=== PATIENT | female | born 2000 | race Caucasian/White ===

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

== ENCOUNTER 2021-10-20 23:27 | Emergency (ER) | payer BC, OTHER ==
[2021-10-20] MEDS ORDERED: IBUPROFEN 600 MG TAB PO STA (23:55)
[2021-10-20] MEDS ORDERED: ACETAMINOPHEN TAB 500 MG TAB PO STA (23:55)
[2021-10-20] MEDS ORDERED: ONDANSETRON ODT 4 MG TAB PO STA (23:59)
--- NOTE | 2021-10-21 | ED ---
General Adult HPI - General Chief complaint: Upper Respiratory Infection Stated complaint: Fever Time Seen by Provider: 10/20/21 23:48 Source: patient Mode of arrival: ambulatory Limitations: no limitations - History of Present Illness Initial comments: 21-year-old female presents to the emergency room for not feeling well. Patient states that since last night she has had a fever. States she has had a cough and body aches. She did have some nausea and vomiting earlier today. Patient is concerned it could be Covid 19. She denies shortness of breath or chest pain. She has not had Motrin or Tylenol the past 6 hours.Patient has no other complaints at this time including shortness of breath, chest pain, abdominal pain, nausea or vomiting, headache, or visual changes. - Related Data Allergies Allergy/AdvReac Type Severity Reaction Status Date / Time No Known Allergies Allergy Verified 10/20/21 23:35 Review of Systems ROS Statement: Those systems with pertinent positive or pertinent negative responses have been documented in the HPI. ROS Other: All systems not noted in ROS Statement are negative. Past Medical History Past Medical History: No Reported History History of Any Multi-Drug Resistant Organisms: None Reported Past Surgical History: No Surgical Hx Reported Past Psychological History: No Psychological Hx Reported Smoking Status: Vaper Past Alcohol Use History: Occasional Past Drug Use History: Marijuana General Exam Limitations: no limitations General appearance: alert, in no apparent distress Head exam: Present: atraumatic Eye exam: Present: normal appearance, PERRL, EOMI. Absent: scleral icterus, conjunctival injection ENT exam: Present: normal exam, mucous membranes moist Neck exam: Present: normal inspection, full ROM. Absent: tenderness Respiratory exam: Present: normal lung sounds bilaterally. Absent: respiratory distress, wheezes Cardiovascular Exam: Present: regular rate, normal rhythm, normal heart sounds GI/Abdominal exam: Present: soft, normal bowel sounds. Absent: distended, tenderness Neurological exam: Present: alert Course Vital Signs 10/20/21 23:34 Temperature 103.1 F H Pulse Rate 118 H Respiratory 20 Rate Blood Pressure 92/52 O2 Sat by Pulse 96 Oximetry Medical Decision Making - Medical Decision Making Vitals are stable. Patient is febrile with reflexive tachycardia. HPI and physical exam as documented. COVID-19 is negative. Patient did test positive for influenza A. Chest x-ray shows a normal chest. At this time patient can be discharged home to follow up with primary care. She will return here for any worsening symptoms. - Lab Data Lab Results 10/20/21 10/21/21 Range/Units 23:38 00:23 Coronavirus (PCR) Not Detected (Not Detectd) Influenza Type A RNA Detected H (Not Detectd) Influenza Type B (PCR) Not Detected (Not Detectd) Disposition Clinical Impression: Influenza A Disposition: HOME SELF-CARE Condition: Good Instructions (If sedation given, give patient instructions): Influenza (ED) Additional Instructions: Please alternate Motrin and Tylenol every 3 hours for fever. You can take 2 extra strength Tylenol at a time and three 200 mg Motrin. Drink plenty of fluids. Follow-up with your doctor. Return to the emergency room for any worsening symptoms. Is patient prescribed a controlled substance at d/c from ED?: No Referrals: June Gupta MD [REFERRING] - 1-2 days Time of Disposition: 01:29
--- NOTE | 2021-10-21 00:27 | XR ---
EXAMINATION TYPE: XR chest 2V DATE OF EXAM: 10/21/2021 COMPARISON: NONE HISTORY: Cough TECHNIQUE: 2 views FINDINGS: Heart and mediastinum are normal. Lungs are clear. Diaphragm is normal. Bony thorax is inta ct. IMPRESSION: Normal chest.
[2021-10-21 01:31] LABS: Amorphous Sediment,Urine Many /hpf; Appearance,Urine Turbid (Clear); Bacteria,Urine Occasional /hpf; Bilirubin,Urine Negative (Negative); Blood,Urine Negative (Negative); Color,Urine Yellow; Glucose,Urine (UA) Negative (Negative); Ketones,Urine 1+ (Negative); Leukocyte Esterase,Urine Trace (Negative); Mucus,Urine Many /hpf; Nitrite,Urine Negative (Negative); PH, Urine 5.5 (5.0-8.0); Protein,Urine 1+ (Negative); Specific Gravity,Urine 1.032 (1.001-1.035); Squamous Epithelial Cell,Urine 3 /hpf (0-4); Urobilinogen,Urine <2.0 mg/dL (<2.0); WBC,Urine 2 /hpf (0-5)
[2021-10-21 01:49] VITALS: BP 107/52; PULSE 81; RESP 18; TEMP 99.4
== END 2021-10-21 01:54 | disposition home or self-care (01) ==
LOC: EC 23:27
DX: J10.1 Influenza due to other identified influenza virus with other respiratory manifestations (principal); Z20.822 Contact with and (suspected) exposure to COVID-19; F17.290 Nicotine dependence, other tobacco product, uncomplicated; F12.90 Cannabis use, unspecified, uncomplicated
CPT/HCPCS: 71046; 81001; 87502; 87635; 99284